=== PATIENT | female | born 1950 | race Caucasian/White ===

== ENCOUNTER 2016-11-26 20:07 | Emergency (ER) | payer BC ==
[~2016-11-26] VITALS: Ht 165.1 cm; Wt 61.2 kg
[2016-11-26 20:13] VITALS: BP 154/93; PULSE 89; TEMP 37; O2SAT 98; Ht 165.1 cm; Wt 61.2 kg
[2016-11-26] MEDS ORDERED: CEPH500C PO (21:05)
--- NOTE | 2016-11-26 22:13 | EMERGENCY ROOM VISIT NOTE ---
History Report prepared by Stanton: Marie Woods Under the Supervision of: Dr. Jericho Bajwa M.D. First contact with patient: 20:57 Chief Complaint: BITE Stated Complaint: INFECTED BEE STING History of Present Illness The patient is a 66 year old female who presents to the Emergency Room with complaints of a sudden bite on her left leg. She describes the bite as being itchy and stinging. The patient reports that she was stung by a bee last night, and she believes that her bite is infected now. She was outdoors and there were a lot of these around and she felt something flying near her leg and tried to wake the way and felt a sudden sting. She reports that she has not taken medication for her pain, but has put an ice pack on it. The patient denies being febrile. Source of History: patient Onset: yesterday Position: leg (left) Quality: other (itchy, stinging ) Timing: other (sudden) Associated Symptoms: No fevers Review of Systems See HPI for pertinent positives & negatives. A total of 4 systems reviewed and were otherwise negative. Past Medical & Surgical No pertinent medical history stated. Family History No pertinent family history stated. Social History Smoking Status: Never Smoker Marital Status: Housing Status: lives with significant other Current/Historical Medications Scheduled Cephalexin Monohydrate (Keflex), 500 MG PO TID Allergies Coded Allergies: No Known Allergies (Unverified , 11/26/16) Physical Exam Vital Signs Date Time Temp Pulse Resp B/P (MAP) Pulse Ox O2 Delivery O2 Flow Rate FiO2 11/26/16 20:13 37.0 89 18 154/93 98 Room Air Physical Exam Constitutional: Vital signs reviewed. Musculoskeletal: Grapefruit size erythematous lesion to the posterior left thigh without secondary signs of infection. No stinger is visible under magnification and illumination. Integumentary: As above. Neurological: The patient is awake and alert. No focal deficits. Psychiatric: Normal affect. Medical Decision & Procedures Medications Administered Medications (Trade) Dose Ordered Sig/Caroline Route Start Time Stop Time Status Last Admin Dose Admin Diphenhydramine HCl (Benadryl Cap) 50 mg STK-MED ONCE .ROUTE 11/26/16 21:09 11/26/16 21:10 DC 11/26/16 21:15 50 MG ED Course 2100: The patient was evaluated in room D9. A complete history and physical exam was performed. 2104: Ordered 50 mg of Benadryl. 2109: Upon reevaluation, the patient appeared to have improvement of her symptoms. I discussed una's findings with her. She verbalized agreement of the treatment plan. She was discharged home. Medical Decision This is a 66-year-old female presents with a bee sting to her left leg. I did perform a limited focused review of portions of the patient's old chart on the electronic medical record. The patient has had no recent pertinent visits to this hospital. I did evaluate patient as noted above. On my examination the patient appears to have a area of inflammation to the left leg where she was stung. No stinger is present. At this time I don't feel that she has a secondary cellulitis and recommended treatment with antihistamines. Should she have no improvement of her symptoms. It is possible she may have developed a secondary infection so I did give her a prescription to fill if her symptoms do not improve with antihistamines. She was discharged with a prescription for Keflex and given a dose of Benadryl here. Medication Reconcilliation Current Medication List: was personally reviewed by me Blood Pressure Screening Patient's blood pressure: Elevated blood pressure Blood pressure disposition: Referred to PCP Impression Primary Impression: Bee sting Scribe Attestation The scribe's documentation has been prepared under my direct and personally reviewed by me in its entirety. I confirm that the note above accurately reflects all work, treatment, procedures, and medical decision making performed by me. Departure Information Dispostion Home / Self-Care Prescriptions Cephalexin Monohydrate (Keflex) 500 Mg Cap 500 MG PO TID for 7 Days, #21 CAP Prov: Jericho Bajwa M.D. 11/26/16 Referrals Lex Brumfield M.D. (PCP) Forms HOME CARE DOCUMENTATION FORM, IMPORTANT VISIT INFORMATION Patient Instructions ED Bite Sting Insect Local Allergic React, My [facility] Additional Instructions You have been examined and treated today on an emergency basis only. This is not a substitute for, or an effort to provide, complete comprehensive medical care. It is impossible to recognize and treat all injuries or illnesses in a single emergency department visit. It is therefore important that you follow up closely with your physician. Call as soon as possible for an appointment. Return for worsening symptoms or if you develop fever, vomiting, or any other concerning symptoms. Try antihistamines (benadryl). If your symptoms do not improve by tomorrow start antibiotics. Problem Qualifiers Primary Impression: Bee sting Encounter type: initial encounter Injury intent: accidental or unintentional Qualified Codes: T63.441A - Toxic effect of venom of bees, accidental (unintentional), initial encounter
== END 2016-11-26 21:16 | disposition home or self-care (01) ==
LOC: C.EDB 20:09 → C.EDD 21:16
DX: T63.441A Toxic effect of venom of bees, accidental (unintentional), initial encounter (principal); W57.XXXA Bitten or stung by nonvenomous insect and other nonvenomous arthropods, initial encounter

== ENCOUNTER → 2017-02-02 | Outpatient (CLI) | payer BC ==
--- NOTE | 2017-02-02 12:50 | MAMMOGRAPHY REPORT ---
BILATERAL DIGITAL SCREENING MAMMOGRAM WITH CAD: 02/02/2017 CLINICAL HISTORY: Routine screening. Patient has no complaints. TECHNIQUE: Current study was also evaluated with a Computer Aided Detection (CAD) system. Bilateral CC and MLO views were obtained. COMPARISON: Comparison is made to exams dated: 02/02/2016 mammogram, 01/27/2015 mammogram, 4 mammogram, 01/23/2013 mammogram, 01/18/2012 mammogram, and 01/02/2011 mammogram - [facility]. BREAST COMPOSITION: There are scattered areas of fibroglandular density in both breasts. FINDINGS: No suspicious masses, calcifications, or areas of architectural distortion are noted in ei ther breast. There has been no significant interval change compared to prior exams. IMPRESSION: ACR BI-RADS CATEGORY 1: NEGATIVE There is no mammographic evidence of malignancy. A 1 year screening mammogram is recommended. The pa tient will receive written notification of the results. Approximately 10% of breast cancers are not detected with mammography. A negative mammographic report should not delay biopsy if a clinically suggestive mass is present. Amber Mclaughlin M.D. /:02/02/2017 10:54:04 Inside Sales: Camryn GERMAN)(Ghada), [facility] letter sent: Normal 1/2 BI-RADS Code: ACR BI-RADS Category 1: Negative
== END | disposition home or self-care (01) ==
LOC: C.MAMM 09:22
PROVIDERS: ATTEND Family Medicine
DX: Z12.31 Encounter for screening mammogram for malignant neoplasm of breast (principal)